=== PATIENT | female | born 1990 | race Caucasian/White ===

== ENCOUNTER 2017-05-22 12:40 | Inpatient (IN) | payer SELFPAY ==
[~2017-05-22] VITALS: Ht 160 cm; Wt 75.3 kg
[2017-05-22] MEDS ORDERED: PNV1TABL76 PO (12:48)
[2017-05-22] MEDS ORDERED: ACETAMINOPHEN 325MG TABLET PO ONE (16:00)
[2017-05-22 16:01] LABS: HEMATOCRIT. 36.5 % (36.0-48.0); HEMOGLOBIN. 12.6 g/dL (12.0-16.0); MEAN CORPUSCULAR HEMOGLOBIN 30.2 pg (28.0-32.0); MEAN CORPUSCULAR VOLUME 87.8 fL (81.0-99.0); MEAN PLATELET VOLUME 7.9 fl (7.4-10.4); PLATELET 273 x1000/uL (130-400); RED BLOOD CELL COUNT 4.16 mill/uL (4.2-5.4); RED CELL DISTRIBUTION WIDTH 13.8 % (11.6-14.6)
[2017-05-22 16:18] LABS: CARBON DIOXIDE 19 mEq/L (21-32); CHLORIDE 106 mEq/L (98-107)
[2017-05-22 16:25] LABS: B-HCG QUANTITATIVE 22810 mIU/mL (<3)
[2017-05-22 16:28] LABS: CLARITY URINE CLEAR (CLEAR); COLOR URINE DARK YELLOW (YELLOW); GLUCOSE URINE NEGATIVE (NEGATIVE); KETONES URINE 2+ (NEGATIVE); LEUKOCYTE ESTERASE URINE 1+ (NEGATIVE); NITRITE URINE NEGATIVE (NEGATIVE); OCCULT BLOOD URINE NEGATIVE (NEGATIVE); PROTEIN URINE TRACE (NEGATIVE); SPECIFIC GRAVITY URINE 1.023 (1.005-1.030)
[2017-05-22 16:28] LABS: PLATELET ESTIMATE NORMAL
[2017-05-22] MEDS ORDERED: SODIUM CHLORIDE 0.9% 1000ML BAG (SEPSIS BOLUS) IV ONE (18:30)
[2017-05-23 00:20] VITALS: BP 84/45
[2017-05-23] MEDS ORDERED: ACETAMINOPHEN 325MG TABLET PO NR (03:15)
[2017-05-23] MEDS ORDERED: CEFAZOLIN 2,000 MG in DEXT 5% WATER 100 ML IV NR (04:00)
[2017-05-23] MEDS ORDERED: DEXT 5%/0.9% NACL KCL 20MEQ/L 1,000 ML IV ONE (04:00)
== END 2017-05-23 13:00 | disposition home or self-care (01) | DRG 566 ==
LOC: ER 13:42 → L&D 18:33 → UNDOADMIN 18:33 → 6EST 18:33 → EDBEDREQ 18:43 → ENRESERV 20:47 → L&D 05-23 02:23 → 6EST 05-23 02:23
PROVIDERS: ADMIT Obstetrics & Gynecology; ATTEND Obstetrics & Gynecology
DX: O23.02 Infections of kidney in pregnancy, second trimester (principal); Z59.0 Homelessness; Z3A.21 21 weeks gestation of pregnancy
CPT/HCPCS: 36415; 76805; 80053; 81001; 81025; 84702; 85025; 86850; 86900; 96360; 96361; 96365; 99285; G0378; J0690; J7030; J7060